=== PATIENT | female | born 1990 | race Caucasian/White ===

== ENCOUNTER → 2016-09-01 | Outpatient (CLI) | payer OTHER ==
[~2016-09-01] MED LIST: ADVIL200 M1; ALLOPURINOL300 MG PO; BACTRIM DS TAB1 EACH PO; DEXAMETHASONE4 MG PO; EMLA TOP; HYDROCODON-ACE1 EAC5 PO; HYDROXYZINE HCL25 M1 PO; IBUPROFEN800 MG PO; NO MEDICATIONS; PHENERGAN25 M1 PO; PHENERGAN25 MG PO; XARELTO15 MG PO; ZOFRAN ODT4 M1 PO
--- NOTE | ~2016-09-01 | XA230 ---
[facility] A Service of [facility] & [facility] RADIOLOGY TEXT RESULTS PATIENT: JOSE ANGEL GREGORIO [facility] [birth year] UNIT #: [id number] AGE: [address]: Jude Murray MD SEX: F ORDER DR: [id number] [place] [id number] [facility]. [place], [place] [address] [id number] O MR#: [id number] Acc #: [id number] NAME: JOSE ANGEL GREGORIO : 1990 SEX: F STUDY DATE/TIME: 09/01/2016 15:34 UNIT: [facility] ROOM: STUDY DESCRIPTION: XA FNA Attending Physician: Jude Murray M.D. Referring Physician: Jude Murray M.D. Ordering Physician: Jude Murray M.D. Primary Care Physician: Jude Murray M.D. MEDICAL IMAGING REPORT This report is preliminary unless electronic signature is present EXAM Thyroid ultrasound. HISTORY Ms. Taylor is a 26-year-old lady without underwent a CT angiogram of the chest August 02, 2016. Patient was noted to have an enlarged left supraclavicular lymph node. She subsequently underwent a thyroid ultrasound which showed multiple hypoechoic lesions within the thyroid gland. PROCEDURE There risks, benefits, and alternatives to the procedure were explained to the patient, and signed, informed consent was obtained, the patient was placed supine on the angiographic table and was prepped and draped in the usual fashion. I did perform a preliminary ultrasound through the right lobe of the thyroid gland where the patient was noted to have the 2 dominant nodules. On these images, these appear to be cysts rather than solid nodules and images were permanently saved. The patient was then prepped and draped usual sterile fashion. Time-out was performed as per protocol. Skin and subcutaneous tissues were anesthetized with buffered lidocaine. I have picked the largest cyst within the right lobe of the thyroid gland. Skin and subcutaneous tissues were anesthetized with buffered lidocaine and a 25-guage needle was advanced into the cyst under direct sterile sonographic guidance and I was able to aspirate several mL of brown material confirming that this was again a cyst. The nodule which was previously measured up to 2.1 x 1.1 x 1.0 cm on the prior study, I think is also a cyst, and this was not aspirated. Ultrasound of the left supraclavicular region again demonstrated a large node. Skin and subcutaneous tissues were anesthetized with buffered lidocaine and a total of 3 separate passes were made into this nodule under direct sterile sonographic guidance. Specimens were given to a microbiology technologist to confirm an adequate specimen had been obtained. Patient tolerated the procedure well and there are no immediate complications. [facility] A Service of [facility] RADIOLOGY TEXT RESULTS PATIENT: JOSE ANGEL GREGORIO LOCATION: [facility] #: [id number] : [birth year] UNIT #: [id number] AGE: [address]: Jude Murray MD SEX: F ORDER DR: IMPRESSION 1. My ultrasound today showed that the measured lesions within the thyroid gland correspond to cysts rather than solid nodules. I did aspirate the largest of these cysts. 2. Large left supraclavicular lymph node again seen. I did make a total of 3 separate passes through this nodule and microbiology technologist confirmed an adequate specimen had been obtained. Ultrasound was used during this procedure and permanent images were saved. Dictated by... Katy Man M.D. THIS IS AN ELECTRONICALLY VERIFIED REPORT Katy Man M.D. at 09/02/2016 5:08 PM AFF/donovan TD: 09/02/2016 13:49 JOB #: [id number] MEDICAL IMAGING REPORT COPY
== END | disposition home or self-care (01) ==
LOC: CIVR 14:06
DX: E04.1 Nontoxic single thyroid nodule (principal); R59.0 Localized enlarged lymph nodes; E66.01 Morbid (severe) obesity due to excess calories; E28.2 Polycystic ovarian syndrome
CPT/HCPCS: 76937; 76942; 88173; 88305

== ENCOUNTER → 2016-09-22 | Day surgery (SDC) | payer OTHER ==
--- NOTE | ~2016-09-22 | OR ---
Unit #: [id number] #: [id number] Patient: JOSE ANGEL GREGORIO [id number] [address] [place], [place] [address] [id number] O MR#: [id number] NAME: JOSE ANGEL GREGORIO ROOM: Date of Procedure: 09/22/2016 Admission Date: 09/22/2016 Surgeon: Haseeb Jeronimo M.D. : 1990 Attending Physician: Haseeb Jeronimo M.D. Referring Physician: Haseeb Jeronimo M.D. Primary Care Physician: Jude Murray M.D. OPERATIVE REPORT PREOPERATIVE DIAGNOSES Enlarged left cervical lymph node as well as an enlarged anterior mediastinal node. POSTOPERATIVE DIAGNOSES Enlarged left cervical lymph node as well as an enlarged anterior mediastinal node with frozen section on the left cervical node being suggestive of probable lymphoma. PROCEDURE PERFORMED Left cervical lymph node biopsy. ANESTHESIA General. ESTIMATED BLOOD LOSS About 5 mL. DRAINS None. COMPLICATIONS None. DESCRIPTION OF PROCEDURE The patient was taken to the operating room and placed on the operating room table in a supine position. After appropriate monitoring lines had been placed, general anesthesia was then induced using an LMA tube. A rolled sheet was placed beneath the shoulders such as to extend the neck and the head turned slightly to the right. The left neck and upper chest were prepped with ChloraPrep and draped in a sterile fashion. A left neck incision was made over the palpable lymph node in the neck. The incision was carried down through the subcutaneous tissue with hemostasis being obtained using the Bovie. The lateral portion of the sternocleidomastoid muscle was taken down slightly using the Bovie. The enlarged 3 cm lymph node present was then dissected free from the surrounding subcutaneous tissue with small feeding vessels into the node being clamped with hemostats and then cut. The lymph node was then removed and taken to the back table, where it was sectioned into 3 portions with one being sent to Pathology for frozen section, one being sent for permanent sections, and the final one being sent for cultures. Small branching vessels into the node that had been clamped with hemostats was then tied off using 3-0 Unit #: [id number] #: [id number] Patient: JEANNIE GREGORIOAH Vicryl ties. The lateral portion of the sternocleidomastoid muscle that had been cut was reapproximated using 2-0 Vicryl suture. The subcutaneous tissue was closed using running layers of 3-0 Vicryl. The skin was closed using running 4-0 Vicryl subcuticular stitch. Dermabond was applied to the incision. Estimated blood loss in the procedure was about 5 mL. Sponge and needle counts in the operation were correct. The patient tolerated the procedure well and left the operating room in satisfactory condition. Dictated by... Betsy Xie/freddy TD: 09/23/2016 05:09 JOB #: [id number] OPERATIVE REPORT X Haseeb Jeronimo MD X PROCEDURE OPERATIVE NOTE
[2016-09-22 08:41] LABS: URINE SOURCE CLEAN CATCH
[2016-09-22 08:44] LABS: BASOPHIL# 0.1 X10e3 (0-0.3); EOSINOPHIL# 0.2 X10e3 (0-0.7); EOSINOPHIL% 1.6 % (0.0-7.0); HEMATOCRIT 38.6 % (35.0-45.0); HEMOGLOBIN 12.9 gm/dL (12.0-16.0); LYMPHOCYTE% 29.8 % (17.0-45.0); MEAN CELL VOLUME 78.8 FL (83-96); MEAN CORPUSCULAR HEMOGLOBIN 26.3 PG (28-34); MEAN CORPUSCULAR HGB CONC 33.4 g/dL (30-36); MEAN PLATELET VOLUME 7.6 FL (6.5-11.5); MONOCYTE# 0.4 X10e3 (0-1.0); NEUTROPHIL# 6.3 X10e3 (1.5-7.1); NEUTROPHIL% 63.6 % (40-75); PLATELET COUNT 220 X10e3 (140-420); RED CELL DISTRIBUTION WIDTH 15.2 % (11.0-15.5); WHITE BLOOD COUNT 9.9 X10e3 (4.0-10.5)
[2016-09-22 08:46] LABS: DIFF IND NO
[2016-09-22 08:47] LABS: URINE APPEARANCE CLEAR; URINE BILIRUBIN NEG (NEG); URINE BLOOD NEG (NEG); URINE COLOR YELLOW; URINE GLUCOSE NEG (NEG); URINE KETONE NEG (NEG); URINE LEUKOCYTE ESTERASE NEG (NEG); URINE NITRATE NEG (NEG); URINE PROTEIN NEG (NEG); URINE SPECIFIC GRAVITY 1.026 (1.003-1.035); URINE UROBILINOGEN 0.2 MG/DL (NEG)
[2016-09-22 08:54] LABS: CULTURE INDICATED? NO
[2016-09-22 09:00] LABS: PARTIAL THROMBOPLASTIN TIME 27.5 SECONDS (23.5-31.3); PROTHROMBIN TIME (PATIENT) 10.3 SECONDS (9.6-11.5)
[2016-09-22 09:03] LABS: ALBUMIN SERUM 3.7 g/dL (3.5-5.0); ALKALINE PHOSPHATASE 71 U/L (32-92); ALT (SGPT) 34 U/L (10-40); AST (SGOT) 22 U/L (10-42); BILIRUBIN,TOTAL 0.5 mg/dL (0.2-2.0); BLOOD UREA NITROGEN 16 mg/dL (9-23); BUN/CREATININE RATIO 26.66; CALCIUM SERUM 8.6 mg/dL (8.4-10.2); CARBON DIOXIDE 25 mmol/L (22-31); CHLORIDE 104 mmol/L (100-111); CREATININE SERUM 0.6 mg/dL (0.6-1.4); GLOM FILT RATE Estimated ABOVE60 mL/min (>60); GLUCOSE FASTING 94 mg/dL (70-110); PROTEIN TOTAL SERUM 7.1 g/dL (6.0-8.3); SODIUM 138 mmol/L (135-145)
== END | disposition home or self-care (01) ==
LOC: CSUR 08:05
PROVIDERS: Surgery
DX: C85.91 Non-Hodgkin lymphoma, unspecified, lymph nodes of head, face, and neck (principal); R59.1 Generalized enlarged lymph nodes; J45.909 Unspecified asthma, uncomplicated; F17.210 Nicotine dependence, cigarettes, uncomplicated; Z88.8 Allergy status to other drugs, medicaments and biological substances; Z91.040 Latex allergy status; Z79.899 Other long term (current) drug therapy; Z90.49 Acquired absence of other specified parts of digestive tract; Z98.890 Other specified postprocedural states
CPT/HCPCS: 80053; 81003; 84703; 85025; 85610; 85730; 86850; 86900; 86901; 87070; 87205; 88305; 88331; J1100; J1885; J2250; J2270; J2765

== ENCOUNTER → 2016-11-09 | Outpatient (CLI) | payer OTHER ==
--- NOTE | ~2016-11-09 | XA91 ---
[facility] A Service of [facility] & [facility] RADIOLOGY TEXT RESULTS PATIENT: JOSE ANGEL GREGORIO LOCATION: [facility] : [birth year] UNIT #: [id number] AGE: [address]: Jr Waller MD SEX: F ORDER DR: [id number] [facility] [address] [facility]. [place], [place] [address] [id number] O MR#: [id number] Acc #: [id number] NAME: JOSE ANGEL GREGORIO : 1990 SEX: F STUDY DATE/TIME: 11/09/2016 11:16 UNIT: [facility] ROOM: STUDY DESCRIPTION: XA CVC Tunneled W Port Attending Physician: Jr Waller M.D. Ordering Physician: Jr Waller M.D. Primary Care Physician: Jude Murray M.D. MEDICAL IMAGING REPORT This report is preliminary unless electronic signature is present EXAM Port placement with ultrasound and fluoroscopic guidance. HISTORY Hodgkin's lymphoma. TECHNIQUE The procedure was explained to the patient, including risks, benefits and complications. Informed consent was obtained, and a formal time-out procedure was utilized. Full barrier sterile technique was employed via standard protocol. Conscious sedation was utilized with intravenous Versed and Fentanyl that was administered by nursing who was present and monitoring the patient during the examination. Using full barrier sterile technique and following local anesthesia with 1% Xylocaine, initial attention was directed to the right internal jugular vein, which was punctured with a micropuncture set under ultrasound guidance. Ultrasound was used to confirm vessel patency, which was confirmed, and permanent ultrasound images were recorded. A 0.018 guidewire was passed into the superior vena cava under fluoroscopic guidance. A 0.035 guidewire was passed through the micropuncture sheath, and a peel-away sheath was placed over the wire. The sheath was flushed with saline. Attention was then directed to the right infraclavicular space where a port pocket was created after local anesthesia with 1% lidocaine and 1% lidocaine with epinephrine. Blunt and sharp dissection was utilized. An 8-Estonian Bard power port was placed into the pocket and tunnel from the port pocket site to the jugular vein puncture site. The catheter was measured to 23.5 cm, cut and deployed through the peel-away sheath with the tip positioned at the cavoatrial junction. The port pocket was flushed with saline and the port was flushed with Hep-Lock solution. The [facility] A Service of [facility] RADIOLOGY TEXT RESULTS PATIENT: JOSE ANGEL GREGORIO [facility] : [birth year] UNIT #: [id number] AGE: [address]: Jr Waller MD SEX: F ORDER DR: port pocket was closed with an interrupted subcutaneous layer of 3-0 Vicryl suture, followed by running 4-0 subcuticular stitch with Monocryl. Dermabond glue was applied to the port pocket site and the jugular vein puncture site. Total fluoroscopy time 0.1 minutes with a total dose of 3 mGy. The patient tolerated the procedure well. IMPRESSION Successful port placement with ultrasound and fluoroscopic guidance utilizing conscious sedation. Dictated by... Cristofer Rider M.D. THIS IS AN ELECTRONICALLY VERIFIED REPORT Cristofer Rider M.D. at 11/10/2016 10:23 PM GEN/jeanne TD: 11/09/2016 18:23 JOB #: [id number] MEDICAL IMAGING REPORT Page 1 of 1 COPY
[2016-11-09 10:55] LABS: HEMATOCRIT 39.3 % (35.0-45.0); MEAN CELL VOLUME 79.4 FL (83-96); MEAN CORPUSCULAR HEMOGLOBIN 26.4 PG (28-34); MEAN CORPUSCULAR HGB CONC 33.2 g/dL (30-36); MEAN PLATELET VOLUME 6.8 FL (6.5-11.5); RED BLOOD COUNT 4.95 X10e (3.90-5.30); RED CELL DISTRIBUTION WIDTH 14.9 % (11.0-15.5); WHITE BLOOD COUNT 9.1 X10e3 (4.0-10.5)
[2016-11-09 11:09] LABS: PARTIAL THROMBOPLASTIN TIME 26.6 SECONDS (23.5-31.3); PROTHROMBIN TIME (PATIENT) 10.4 SECONDS (9.6-11.5)
== END | disposition home or self-care (01) ==
LOC: CIVR 09:47
PROVIDERS: Internal Medicine Hematology & Oncology
PROC: 02HV33Z Insertion of Infusion Device into Superior Vena Cava, Percutaneous Approach (ICD-10-PCS; principal; 2016-11-09)
DX: Z45.2 Encounter for adjustment and management of vascular access device (principal); R59.0 Localized enlarged lymph nodes; E04.2 Nontoxic multinodular goiter; C81.11 Nodular sclerosis Hodgkin lymphoma, lymph nodes of head, face, and neck; E28.2 Polycystic ovarian syndrome; Z79.899 Other long term (current) drug therapy; Z87.891 Personal history of nicotine dependence; Z90.49 Acquired absence of other specified parts of digestive tract; Z91.040 Latex allergy status; Z88.8 Allergy status to other drugs, medicaments and biological substances
CPT/HCPCS: 36415; 76937; 77001; 85027; 85610; 85730; C1788; C1894; J0690; J1642; J2250; J3010

== ENCOUNTER → 2016-11-10 | Outpatient (CLI) | payer OTHER ==
--- NOTE | ~2016-11-10 | XA231 ---
[facility] A Service of [facility] & [facility] RADIOLOGY TEXT RESULTS PATIENT: JOSE ANGEL GREGORIO LOCATION: [facility] : 90 UNIT #: [id number] AGE: [address]: Ronan Pate MD SEX: F ORDER DR: [id number] [place] [id number] [facility]. [place], [place] [address] [id number] O MR#: [id number] Acc #: [id number] NAME: JOSE ANGEL GREGORIO : 1990 SEX: F STUDY DATE/TIME: 11/10/2016 15:52 UNIT: [facility] ROOM: STUDY DESCRIPTION: XA Consult Attending Physician: Ronan Pate M.D. Referring Physician: Ronan Pate M.D. Ordering Physician: Donald Vela M.D. Primary Care Physician: Jude Murray M.D. MEDICAL IMAGING REPORT This report is preliminary unless electronic signature is present PROCEDURE Port incision check. INDICATIONS 26-year-old female who had a chest port placed yesterday. She called and stated that the glue came off of the small incision at the base of the right neck. We had her come in to evaluate the incision. FINDINGS The incision was evaluated. The incision was cleaned was apposed. The glue had fallen off. There is no evidence of any discharge or erythema or swelling. I placed a small Steri-Strip on the incision and the patient was discharged with instructions to follow up for routine 10-day port check, or call with any other concerns prior to that time. Dictated by... Ronan Pate M.D. THIS IS AN ELECTRONICALLY VERIFIED REPORT Ronan Pate M.D. at 11/11/2016 9:32 AM JORGE/ratna TD: 11/10/2016 17:31 JOB #: [id number] MEDICAL IMAGING REPORT Page 1 of 1 COPY
== END | disposition home or self-care (01) ==
LOC: CIVR 15:32
DX: Z45.2 Encounter for adjustment and management of vascular access device (principal)
CPT/HCPCS: 76140

== ENCOUNTER → 2016-12-16 | Outpatient (CLI) | payer OTHER | END | disposition home or self-care (01) | LOC: CECH 09:37 | DX: C81.11 Nodular sclerosis Hodgkin lymphoma, lymph nodes of head, face, and neck (principal); R59.9 Enlarged lymph nodes, unspecified; E04.2 Nontoxic multinodular goiter; E28.2 Polycystic ovarian syndrome | CPT/HCPCS: 93306 ==

== ENCOUNTER 2017-01-01 01:52 | Inpatient (IN) | payer OTHER, BC ==
--- NOTE | ~2017-01-01 | US84 ---
[id number] [facility] [address] [facility]. [place], [place] [address] [id number] I MR#: [id number] Acc #: [id number] NAME: JOSE ANGEL GREGORIO : 1990 SEX: F STUDY DATE/TIME: 01/02/2017 14:53 UNIT: C3A PCU ROOM: 318 STUDY DESCRIPTION: US LE Veins Complete [place] Stdy Attending Physician: Indy Mulligan M.D. Referring Physician: Douglas Armstrong M.D. Ordering Physician: Ed Doc Betsy Michaud Primary Care Physician: Jude Murray M.D. MEDICAL IMAGING REPORT This report is preliminary unless electronic signature is present EXAM Bilateral lower extremity venous duplex, 01/02/2017 HISTORY Bilateral lower extremity pain and edema for 2 days, evaluate for deep vein thrombosis. History of pulmonary embolus diagnosed on chest CT 01/01/2017. TECHNIQUE Venous ultrasound examination of both lower extremities was performed using grayscale, spectral Doppler and color flow Doppler imaging. FINDINGS The examination is negative. There is no evidence of deep venous thrombus from the groin to the lower calf bilaterally. Visualized greater saphenous veins are also patent. IMPRESSION Negative examination. No evidence of lower extremity deep venous thrombosis. Dictated by... Rodger Lopez M.D. THIS IS AN ELECTRONICALLY VERIFIED REPORT Rodger Lopez M.D. at 01/03/2017 8:13 AM FLORIAN/ryan TD: 01/02/2017 20:36 JOB #: [id number] MEDICAL IMAGING REPORT Page 1 of 1 COPY
--- NOTE | ~2017-01-01 | DS ---
Unit #: [id number] #: [id number] Patient: JOSE ANGEL GREGORIO [id number] [address] [place], [place] [address] [id number] I MR#: [id number] NAME: JOSE ANGEL GREGORIO ROOM: [facility] Age: 26 Sex: F Admission Date: 01/01/2017 : 1990 Discharge Date: 01/03/2017 Attending Physician: Indy Mulligan M.D. Referring Physician: Douglas Armstrong M.D. Primary Care Physician: Jude Murray M.D. DISCHARGE SUMMARY REASON FOR ADMISSION Acute pulmonary embolism. HISTORY OF PRESENT ILLNESS/HOSPITAL COURSE The patient is a very pleasant 26-year-old female, who presented secondary to acute hypoxic respiratory failure. She underwent a CTA chest in the emergency room which did reveal positive acute pulmonary embolism. Subsequently, consultation was placed to Dr. Waller as she had seen him in the past secondary to her recent diagnosis of lymphoma. The patient was placed on a heparin drip while here on the telemetry floor. Recommendation was made for the patient to be discharged home on Xarelto. Appropriate prescription was given as detailed below. DIAGNOSTIC STUDIES LABORATORY: Laboratory studies are currently pending, especially in regards to her possible history of factor V. Patient will be followed up as an outpatient by Dr. Waller for ongoing management of lymphoma, multinodular goiter, as well as, acute pulmonary embolism. Patient will follow up with Dr. Anjana Liao of [facility] for ongoing care. FINAL DISCHARGE DIAGNOSES 1. Acute pulmonary embolism. 2. Acute hypoxic respiratory failure. 3. Multinodular goiter. 4. Possible factor V Leiden deficiency. 5. Severe morbid obesity. 6. Polycystic ovary syndrome. DISCHARGE MEDICATIONS 1. Zofran 4 mg p.o. q.6 p.r.n. 2. Dexamethasone 8 mg p.o. b.i.d. take as directed. 3. Phenergan 25 mg p.o. q.4 p.r.n. 4. Emla cream 5 g topical. 5. Atarax 25 mg p.o. t.i.d. p.r.n. 6. Allopurinol 300 mg p.o. daily. 7. Xarelto starter pack 15 mg p.o. b.i.d. x21 days, then 20 mg p.o. daily afterwards. 8. [place] 10/325 one tablet p.o. q.4 p.r.n. #30, prescription given. Please note that patient was evaluated for oxygen and it was noted she was acutely hypoxic secondary to pulmonary embolism and therefore she will be Unit #: [id number] #: [id number] Patient: JOSE ANGEL GREGORIO discharged home with oxygen once this is set up and patient is seen later this morning by Dr. Waller. Patient appears clinically stable for discharge home. Dictated by... Betsy Christensen/dimitrios TD: 01/04/2017 09:00 JOB #: [id number] DISCHARGE SUMMARY Page 1 of 1 X Indy Mulligan MD X DISCHARGE SUMMARY
--- NOTE | ~2017-01-01 | CR72 ---
[facility] A Service of [facility] RADIOLOGY TEXT RESULTS PATIENT: JOSE ANGEL GREGORIO LOCATION: [facility] 318-01 : [birth year] UNIT #: [id number] AGE: [address]: Indy Mulligan MD SEX: F ORDER DR: [id number] [facility] [address] [facility] [address] [facility] [place], [place] [address] [id number] I MR#: [id number] Acc #: [id number] NAME: JOSE ANGEL GREGORIO : 1990 SEX: F STUDY DATE/TIME: 01/01/2017 UNIT: [address] ROOM: [facility] STUDY DESCRIPTION: CR Chest Single View Portable Attending Physician: Indy Mulligan M.D. Referring Physician: Douglas Armstrong M.D. Ordering Physician: Connor Gipson M.D. Primary Care Physician: Jude Murray M.D. MEDICAL IMAGING REPORT This report is preliminary unless electronic signature is present EXAM Chest portable 01/01 02:59 INDICATIONS Left side chest pain today. History of lymphoma. FINDINGS A single AP portable view of the chest shows both lungs to be clear. The heart is normal in size. The mediastinal contour is normal. No significant bone abnormalities are seen. IMPRESSION Normal portable chest. Dictated by... Cristofer Venegas Jr., M.D. THIS IS AN ELECTRONICALLY VERIFIED REPORT Cristofer Venegas Jr., M.D. at 01/01/2017 9:24 PM JASEN/camille TD: 01/01/2017 10:56 JOB #: [id number] MEDICAL IMAGING REPORT Page 1 of 1 COPY
--- NOTE | ~2017-01-01 | EKG ---
PATIENT: JOSE ANGEL GREGORIO UNIT #: [id number] Ventricular Rate: 89 BPM Atrial Rate: 89 BPM P-R Interval: 146 ms QRS Duration: 94 ms Q-T Interval: 394 ms QTC Calculation(Bezet): 479 ms P [place]: 55 degrees Calculated R [place]: 71 degrees Calculated T [place]: 53 degrees Diagnosis Line: Normal sinus rhythm with sinus arrhythmia Diagnosis Line: Normal ECG Diagnosis Line: When compared with ECG of 02-AUG-2016 21:15, Diagnosis Line: No significant change was found Diagnosis Line: Confirmed by ROSA RODRIGUEZ MD ([id number]) on Diagnosis Line: 01/01/2017 11:10:37 AM INTERPRETING MDEmily NUNN
--- NOTE | ~2017-01-01 | US140 ---
[facility] A Service of [facility] & [facility] RADIOLOGY TEXT RESULTS PATIENT: JOSE ANGEL GREGORIO LOCATION: [facility] 318-01 : [birth year] UNIT #: [id number] AGE: [address]: Indy Mulligan MD SEX: F ORDER DR: [id number] [facility] [address] [place], [place] [address] [id number] I MR#: [id number] Acc #: [id number] NAME: JOSE ANGEL GREGORIO : 1990 SEX: F STUDY DATE/TIME: 01/02/2017 14:40 UNIT: [address] ROOM: [facility] STUDY DESCRIPTION: US UE Veins Unilat or Ltd Stdy Attending Physician: Indy Mulligan M.D. Referring Physician: Douglas Armstrong M.D. Ordering Physician: Ed Leopoldo Michaud M.D. Primary Care Physician: Jude Murray M.D. MEDICAL IMAGING REPORT This report is preliminary unless electronic signature is present EXAM Right upper extremity venous duplex, 01/02/2017 HISTORY Right upper extremity pain for 1 day. Pulmonary embolus diagnosed with chest CT 01/01/2017, evaluate for deep vein thrombosis. FINDINGS Davila-scale images of the right upper extremity were obtained as well as Doppler waveform spectral analysis and color flow Doppler imaging. There is normal blood flow and compressibility in the right internal jugular vein as well as the right subclavian, axillary, brachial, cephalic and basilic veins. There is no evidence of deep vein thrombosis in the right upper extremity. IMPRESSION Negative right upper extremity venous duplex with no evidence of deep vein thrombosis. Dictated by... Rodger Lopez M.D. THIS IS AN ELECTRONICALLY VERIFIED REPORT Rodger Lopez M.D. at 01/03/2017 8:13 AM FLORIAN/ryan TD: 01/02/2017 21:28 JOB #: [id number] MEDICAL IMAGING REPORT Page 1 of 1 COPY
--- NOTE | ~2017-01-01 | HP ---
Unit #: [id number] #: [id number] Patient: JOSE ANGEL GREGORIO [id number] [address] [place], [place] [address] [id number] I MR#: [id number] NAME: JOSE ANGEL GREGORIO ROOM: [facility] Age: 26 Sex: F Admission Date: 01/01/2017 : 1990 Attending Physician: Indy Mulligan M.D. Referring Physician: Douglas Armstrong M.D. Primary Care Physician: Jude Murray M.D. HISTORY AND PHYSICAL REASON FOR ADMISSION Acute pulmonary embolism. HISTORY OF PRESENT ILLNESS The patient is a 26-year-old female who was diagnosed with lymphoma, currently followed by Dr. Waller for the past several weeks, who presented secondary to acute onset of shortness of breath, right sided chest discomfort. She presented to the ER with similar symptoms. It was noted that she was acutely hypoxic. She underwent CT angiogram PE protocol while being evaluated in the emergency room which demonstrated possibility of infiltrate in the right lower lobe, possible atelectasis but also showed right lower lobe pulmonary artery branch pulmonary embolism and, thus, she was admitted for the same. Overnight, she received Lovenox at 1 mg/kg subcu b.i.d. and, at the present time, I am evaluating her on a telemetry floor and she is otherwise comfortable. She tells me that approximately six months ago she was diagnosed with a left lower extremity superficial vein thrombosis and was told by her physician at that time to take Motrin and no further anticoagulation was recommended. She also tells me that she has no prior history of any blood clots. However, her father did have a blood clotting disorder and she believes that she has been diagnosed with Factor V Leiden deficiency. However, details are not clear. PAST MEDICAL HISTORY 1. Lymphoma, currently under treatment by Dr. Waller. 2. PCOS. 3. Generalized anxiety disorder. 4. Prior history of SVT left lower extremity. SURGICAL HISTORY 1. Cholecystectomy. 2. Biopsy of neck with resultant diagnosis of lymphoma. 3. Prior history of bilateral ear tube placement. HOME MEDICATIONS 1. Advil. 2. Atarax. ALLERGIES Unit #: [id number] #: [id number] Patient: JOSE ANGEL GREGORIO. FAMILY HISTORY Positive for blood clotting disorder in father. SOCIAL HISTORY The patient denies any tobacco use. Very social alcohol use and that too very seldom once every three months. Patient adamantly denies IV drug use. REVIEW OF SYSTEMS Please see HPI. Twelve point otherwise negative except for those positives noted in HPI. PHYSICAL EXAMINATION VITAL SIGNS: Temperature 98.4, pulse 117, respiratory rate 22, blood pressure 163/99. GENERAL APPEARANCE: The patient is a very pleasant 26-year-old female lying comfortably in no acute distress. A bit anxious on exam. HEAD EXAM: Atraumatic, normocephalic. EAR EXAM: Tympanic membranes do not reveal any erythema or injection. NECK EXAM: Supple. CVS: S1, S2 are audible. I do not hear a murmur. CHEST: Chest wall exam does reveal a port which is placed over her right anterior chest. LUNG EXAM: Generally clear to auscultation bilaterally. EXTREMITIES: Lower extremity exam - 1+ lower extremity edema. No calf tenderness noted bilaterally. NEUROLOGICAL EXAM: The patient is A and O x3. No evidence of any focal nerve deficits. INITIAL ER COURSE Reveals the aforementioned CTA of chest. BNP is 14. BMP is relatively unremarkable. Her initial CBC shows a hemoglobin of 10.7 with MCV of 79. INITIAL ADMISSION DIAGNOSES 1. Acute pulmonary embolism. 2. Possible community-acquired pneumonia. 3. Acute hypoxic respiratory failure. 4. Lymphoma, currently under treatment by Dr. Waller. 5. Questionable Factor V Leiden deficiency. 6. Morbid obesity. 7. Prior history of polycystic ovarian syndrome. 8. Generalized anxiety disorder. PLAN Admission to telemetry floor, symptom management, O2 support, pain control. Consultation will be placed to Dr. Waller in regards to anticoagulation management as currently she is undergoing treatment for lymphoma and certainly consideration may be given, since this is the first time event, to new novel anticoagulation. However, I will defer the decision to Novolin anticoagulation versus Lovenox and/or Coumadin to Dr. Waller. Also noted is the patient has been receiving Lupron injections on a monthly basis. This may need to be reviewed as an outpatient given that she has a new pulmonary embolism. Will also check a lower extremity bilateral ultrasound to rule out acute DVT. Plans have been reviewed with patient. She had all of her questions answered. She is well aware of the plan as stated above, and she is full Unit #: [id number] #: [id number] Patient: JOSE ANGEL GREGORIO. Dictated by Betsy Christensen/brock TD: 01/02/2017 05:02 JOB #: [id number] HISTORY AND PHYSICAL Page 1 of 1 X Indy Mulligan MD X HISTORY AND PHYSICAL
--- NOTE | ~2017-01-01 | CO ---
Unit #: [id number] #: [id number] Patient: JOSE ANEGL GREGORIO [id number] [address] [place], [place] [address] [id number] I MR#: [id number] NAME: JOSE ANGEL GREGORIO ROOM: [facility] Age: 26 Sex: F Admission Date: 01/01/2017 : 1990 Attending Physician: Indy Mulligan M.D. Primary Care Physician: Jude Murray M.D. CONSULTATION REPORT CHIEF COMPLAINT Classical Hodgkin lymphoma, nodular sclerosis type, received three cycles of ABVD, now has a PE. HISTORY OF PRESENT ILLNESS This is a 26-year-old female who had a cholecystectomy during July 2015 in [place]. At that time, she had mediastinal cervical lymphadenopathy, somehow it was ignored. The patient had a superficial vein thrombosis and had extensive imaging study. Patient was found to have a left cervical lymphadenopathy, mediastinal and paratracheal lymphadenopathy. The patient had excisional biopsy and it confirmed classical Hodgkin lymphoma, nodular sclerosis type. PET scan on 09/13/2016 confirmed the hypermetabolic activity in the left supraclavicular region, anterior mediastinum and right paratracheal. She had received three cycles of ABVD. She is tolerating. Yesterday she called me and had pleuritic chest pain. I sent her to ER. Her CT of the chest PE protocol on 01/01/2017 confirmed the right sided PE. The mediastinal lymph node is improving. The patient is taking Lovenox 160 mg subcu b.i.d. At present, she still has pleuritic chest pain. REVIEW OF SYSTEMS CONSTITUTIONAL: No fever, no chills, no sweats, no weight loss. EYES: No visual symptoms. EARS, NOSE AND THROAT: There is no runny nose or sore throat or difficulty hearing. CARDIOVASCULAR: No chest pain. No shortness of breath. No palpitations. No orthopnea. No PND. RESPIRATORY: As mentioned above. GASTROINTESTINAL: No nausea, vomiting, diarrhea, constipation, hematochezia or melena. GENITOURINARY: No urinary frequency, hesitancy or urgency. No blood in the urine. MUSCULOSKELETAL: No muscle or joint pain. NEUROLOGIC: No headache. No numbness or tingling. No weakness. No seizure. PSYCHIATRIC: No anxiety, depression or mood disturbance. ENDOCRINE: No excessive urination or thirst. DERMATOLOGIC: No rash or change in the skin. Unit #: [id number] #: [id number] Patient: JOSE ANGEL GREGORIO ALLERGIC/IMMUNOLOGIC: No symptoms. HEMATOLOGIC/LYMPHATIC: Denies any symptoms. PAST MEDICAL HISTORY 1. Classical Hodgkin lymphoma, nodular sclerosis type. 2. PE. 3. Obesity. ALLERGIES None. SOCIAL HISTORY Used to smoke a few cigarettes a day for a few years. Quit many years ago. Denied any alcohol abuse. SURGICAL HISTORY Cholecystectomy. FAMILY HISTORY Negative for cancer. PHYSICAL EXAMINATION GENERAL: Patient is comfortable. ECOG is 0. The patient is pleasant. VITAL SIGNS: Afebrile. Pulse 74, respirations 16, O2 sat 97.5, blood pressure 130/78. HEENT: Moist mucosa. Pupils equally reactive to light. Extraocular muscles intact. Sclerae anicteric. No obvious bleeding from nasal mucosa or oral mucosa. Scalp normal. Hearing normal. NECK: No JVD. No lymphadenopathy. LYMPHATIC/HEMATOLOGIC: There is no palpable adenopathy in the neck, axilla or inguinal area. CARDIOVASCULAR: S1, S2. Regular rate and rhythm. No S3 or S4. RESPIRATORY: Chest symmetrical, normal. Clear to auscultation bilaterally. No wheezes, no rales, no rhonchi. No dullness to percussion. ABDOMEN/GASTROINTESTINAL: Abdomen is soft, nontender, nondistended. No hepatosplenomegaly. EXTREMITIES: There is no clubbing, no cyanosis, no edema. No varicose veins. NEUROLOGICAL: Patient is alert, awake and oriented x3. Cranial nerves II-XII are intact. Sensory grossly intact. Motor is 4/5 in all four extremities. Gait is normal. Station is normal. Language is normal. Memory is normal. DTRs +2 in all four extremities. MUSCULOSKELETAL: No joint swelling. No bony tenderness. No muscle tenderness. SKIN: No petechiae, no rash, no ecchymosis. PSYCHIATRIC: No anxiety. No delusions or hallucinations. There is no agitation. Eye contact is normal. Affect is appropriate. There is no flight of ideas. DIAGNOSTIC STUDIES LABORATORY: WBC 5.7, hemoglobin 10.7, MCV 79, platelets 211. Creatinine is 0.6, LFTs are normal. IMAGING: CT chest PE protocol as mentioned above. ASSESSMENT AND PLAN 26-year-old female with the following active issues: 1. Classical Hodgkin lymphoma: It is nodular sclerosis type. The Unit #: [id number] #: [id number] Patient: JOSE ANGEL GREGORIO patient has received three cycles of ABVD. The fourth cycle is due tomorrow. My partner, Dr. Waller, will decide in this regard. 2. Pulmonary embolism: The patient has a right sided PE. She is on Lovenox. I will discontinue Lovenox. I will start patient on heparin. This is because of her weight. She weighs about 374 pounds, 169 kg. Heparin will be the best option. 3. Anemia: Will check iron studies. Dictated by..Betsy Portillo/brock TD: 01/02/2017 05:46 JOB #: [id number] CONSULTATION REPORT Page 1 of 1 X Ihsan Castellanos MD CONSULTATION REPORT
--- NOTE | ~2017-01-01 | CT16 ---
[facility] A Service of [facility] & [facility] RADIOLOGY TEXT RESULTS PATIENT: JOSE ANGEL GRGEORIO LOCATION: [facility] [id number] : [birth year] UNIT #: [id number] AGE: [address]: Indy Mulligan MD SEX: F ORDER DR: [id number] [facility] [address] [place], [place] [address] [id number] E MR#: [id number] Acc #: [id number] NAME: JOSE ANGEL GREGORIO : 1990 SEX: F STUDY DATE/TIME: 01/01/2017 03:46 UNIT: [facility] ROOM: STUDY DESCRIPTION: CT Angio Chest for PE Attending Physician: Connor Gipson M.D. Ordering Physician: Connor Gipson M.D. Primary Care Physician: Jude Murray M.D. MEDICAL IMAGING REPORT This report is preliminary unless electronic signature is present EXAM Chest CTA 01/01/2017 at 03:46 INDICATIONS Right upper back pain and shortness of air with cough for 1 week getting worse. History of lymphoma. Patient currently undergoing chemotherapy. TECHNIQUE Axial images were obtained through the chest following IV contrast administration. 3-D reformats were obtained. Comparison made with 08/02/2016. This CT exam was performed with one or more of the following radiation dose reduction techniques: automatic control, adjustment of mA and/or kV according to patient size, and iterative reconstruction. FINDINGS Exam is degraded by streak artifact secondary to patient obesity. However, pulmonary embolism is demonstrated in the right lower lobe pulmonary arterial branch. The remainder of the pulmonary circulation is clear. No aortic dissection. No pleural or pericardial effusion. Anterior mediastinal lymph node today measures 9 mm where it was previously about 11 mm. Previously seen left supraclavicular node is not well visualized. It is probably smaller. There is some infiltrate in the right lower lobe which may reflect atelectasis or pneumonia. Pulmonary infarct is in the differential diagnosis. Upper abdomen shows cholecystectomy. IMPRESSION 1. Exam is limited due to artifact from patient obesity. However, there is pulmonary embolism in a right lower lobe pulmonary arterial branch. 2. There is some mild infiltrates or atelectasis in the right lower lobe. Infarct is in the differential diagnosis but is considered somewhat less likely. [facility] A Service of [facility] RADIOLOGY TEXT RESULTS PATIENT: JOSE ANGEL GREGORIO LOCATION: [facility] [id number] : [birth year] UNIT #: [id number] AGE: [address]: Indy Mulligan MD SEX: F ORDER DR: 3. Slight improvement in mediastinal adenopathy. ADDENDUM Findings have been discussed directly with Dr. Gipson in the emergency room at the time of this dictation. STAT * RESULT Dictated by... Cristofer Venegas Jr., M.D. THIS IS AN ELECTRONICALLY VERIFIED REPORT Cristofer Venegas Jr., M.D. at 01/01/2017 6:07 AM JASEN/shelli TD: 01/01/2017 04:37 JOB #: [id number] MEDICAL IMAGING REPORT Page 1 of 1 COPY
--- NOTE | ~2017-01-01 | BMI ---
[facility] Nutrition Therapy DATE: 01/02/17 Patient: JOSE ANGEL VALVERDE TOYANA Physician: TALON Address: [address] [place] [address] Room/Bed: [address] [place] [address], Zip: [place] [address] Admit Date: 01/01/17 Date of : [birth year] Height: 5 5 Weight: 373 169.2 HIGH BMI NOTE: DX: 26 y/o female admitted for acute pulmonary embolism ANTHROPOMETRICS: ht: 5'5" wt: 373# (169 kg) BMI 62 DIET: Healthy Heart INTERVENTION: 1. Healthy Heart diet RECOMMENDATIONS: 1. Continue current healthy heart diet in order to promote gradual weight loss towards a healthy BMI (19.0-25.0) or +/-10% IBW. RD will f/u per protocol. Respectfully, YENIFER MACKEY, merchandising internship [employer] [facility] cc: client file
[~2017-01-01 01:52] MED LIST changes: -ALLOPURINOL300 MG PO; -BACTRIM DS TAB1 EACH PO; -DEXAMETHASONE4 MG PO; -EMLA TOP; -HYDROCODON-ACE1 EAC5 PO; -PHENERGAN25 M1 PO; -PHENERGAN25 MG PO; -XARELTO15 MG PO; -ZOFRAN ODT4 M1 PO
[2017-01-01 02:40] LABS: ARTERIAL BLD GAS O2 SATURATION 97.5 % (90.0-100.0); ARTERIAL BLOOD GAS ALLEN TEST NORMAL; ARTERIAL BLOOD GAS ART SITE RIGHT RADIAL; ARTERIAL BLOOD GAS CARBOXY HB 1.9 %sat (0.0-9.0); ARTERIAL BLOOD GAS DELIVERY ROOM AIR; ARTERIAL BLOOD GAS HCO3 26.2 mmol/L; ARTERIAL BLOOD GAS MET HB 0.6 %sat (0.0-2.0); ARTERIAL BLOOD GAS PCO2 39.1 mmHg (35.0-45.0); ARTERIAL BLOOD GAS PO2 84.6 mmHg (80.0-100); ARTERIAL BLOOD GAS pH 7.434 (7.350-7.450); ARTERIAL DRAW? YES
[2017-01-01 03:09] LABS: BASOPHIL% 0.8 % (0-2.5); EOSINOPHIL# 0.1 X10e3 (0-0.7); EOSINOPHIL% 1.7 % (0.0-7.0); HEMOGLOBIN 10.7 gm/dL (12.0-16.0); LYMPHOCYTE# 1.7 X10e3 (1.0-3.5); LYMPHOCYTE% 30.2 % (17.0-45.0); MEAN CELL VOLUME 79.3 FL (83-96); MEAN CORPUSCULAR HEMOGLOBIN 25.8 PG (28-34); MEAN CORPUSCULAR HGB CONC 32.5 g/dL (30-36); MEAN PLATELET VOLUME 7.3 FL (6.5-11.5); MONOCYTE# 0.6 X10e3 (0-1.0); MONOCYTE% 10.4 % (3.0-12.0); NEUTROPHIL# 3.2 X10e3 (1.5-7.1); NEUTROPHIL% 56.9 % (40-75); PLATELET COUNT 211 X10e3 (140-420); RED BLOOD COUNT 4.16 X10e (3.90-5.30); RED CELL DISTRIBUTION WIDTH 14.9 % (11.0-15.5); WHITE BLOOD COUNT 5.7 X10e3 (4.0-10.5)
[2017-01-01 03:10] LABS: DIFF IND NO
[2017-01-01 03:20] LABS: POC - CKMB <1.0 ng/mL (0.0-7.9); POC - TROPONIN <0.05 ng/mL (<=0.05)
[2017-01-01 03:23] LABS: PARTIAL THROMBOPLASTIN TIME 28.7 SECONDS (23.5-31.3); PROTHROMBIN TIME (PATIENT) 10.7 SECONDS (10.0-11.7)
[2017-01-01 03:32] LABS: ALBUMIN SERUM 3.3 g/dL (3.5-5.0); BILIRUBIN, DIRECT 0.1 mg/dL (0.0-0.2); BILIRUBIN,INDIRECT 0.2 mg/dL (0.0-0.9); BILIRUBIN,TOTAL 0.3 mg/dL (0.2-2.0); BUN/CREATININE RATIO 28.33; CALCIUM SERUM 8.2 mg/dL (8.4-10.2); CREATININE SERUM 0.6 mg/dL (0.6-1.4); GLOM FILT RATE Estimated 125.8 mL/min (>60); POTASSIUM 3.6 mmol/L (3.5-5.1); PROTEIN TOTAL SERUM 6.3 g/dL (6.0-8.3)
[2017-01-01] MEDS ORDERED: ALLOPURINOL300 MG PO (05:24)
[2017-01-01] MEDS ORDERED: PHENERGAN25 M1 PO (05:26)
[2017-01-01] MEDS ORDERED: PHENERGAN25 MG PO (07:57)
[2017-01-01] MEDS ORDERED: BACTRIM DS TAB1 EACH PO (07:57)
[2017-01-01] MEDS ORDERED: ZOFRAN ODT4 M1 PO (15:29)
[2017-01-01] MEDS ORDERED: DEXAMETHASONE4 MG PO (15:30)
[2017-01-01] MEDS ORDERED: EMLA TOP (15:31)
[2017-01-01] MEDS ORDERED: HYDROXYZINE HCL25 M1 PO (15:32)
[2017-01-02 02:48] LABS: HEMATOCRIT 33.6 % (35.0-45.0); MEAN CELL VOLUME 79.4 FL (83-96); MEAN CORPUSCULAR HEMOGLOBIN 25.9 PG (28-34); MEAN CORPUSCULAR HGB CONC 32.7 g/dL (30-36); MEAN PLATELET VOLUME 7.5 FL (6.5-11.5); RED BLOOD COUNT 4.23 X10e (3.90-5.30); RED CELL DISTRIBUTION WIDTH 15.2 % (11.0-15.5); WHITE BLOOD COUNT 5.6 X10e3 (4.0-10.5)
[2017-01-02 03:27] LABS: ALBUMIN SERUM 3.1 g/dL (3.5-5.0); BILIRUBIN,TOTAL 1.1 mg/dL (0.2-2.0); CALCIUM SERUM 8.4 mg/dL (8.4-10.2); CREATININE SERUM 0.5 mg/dL (0.6-1.4); GLOM FILT RATE Estimated 133.6 mL/min (>60); POTASSIUM 4.2 mmol/L (3.5-5.1); PROTEIN TOTAL SERUM 6.1 g/dL (6.0-8.3)
[2017-01-02 03:39] LABS: FERRITIN 152 ng/mL (11-307)
[2017-01-03 02:49] LABS: HEMATOCRIT 32.4 % (35.0-45.0); HEMOGLOBIN 10.8 gm/dL (12.0-16.0); MEAN CELL VOLUME 78.8 FL (83-96); MEAN CORPUSCULAR HEMOGLOBIN 26.2 PG (28-34); MEAN CORPUSCULAR HGB CONC 33.2 g/dL (30-36); MEAN PLATELET VOLUME 7.2 FL (6.5-11.5); RED BLOOD COUNT 4.11 X10e (3.90-5.30); RED CELL DISTRIBUTION WIDTH 15.1 % (11.0-15.5); WHITE BLOOD COUNT 5.6 X10e3 (4.0-10.5)
[2017-01-03 03:18] LABS: CALCIUM SERUM 8.7 mg/dL (8.4-10.2); CREATININE SERUM 0.5 mg/dL (0.6-1.4); GLOM FILT RATE Estimated 133.6 mL/min (>60); POTASSIUM 4.2 mmol/L (3.5-5.1)
[2017-01-03] MEDS ORDERED: HYDROCODON-ACE1 EAC5 PO (09:28)
[2017-01-03] MEDS ORDERED: XARELTO15 MG PO (09:30)
== END 2017-01-03 11:02 | disposition home or self-care (01) | DRG 175 ==
LOC: CED 01:52 → CEDOF 04:30 → C3A PCU 04:30 → CEDOF 05:04 → C3A PCU 05:04 → CED 05:04 → CEDOF 06:04 → C3A PCU 06:46 → CEDOF 06:46 → C3A PCU 01-03 11:02
PROVIDERS: Emergency Medicine; Family Medicine; Internal Medicine; Internal Medicine Hematology
PROC: B32TYZZ Computerized Tomography (CT Scan) of Left Pulmonary Artery using Other Contrast (ICD-10-PCS; principal; 2017-01-01)
PROC: B32SYZZ Computerized Tomography (CT Scan) of Right Pulmonary Artery using Other Contrast (ICD-10-PCS; 2017-01-01)
DX: I26.99 Other pulmonary embolism without acute cor pulmonale (principal); J96.01 Acute respiratory failure with hypoxia; Z68.43 Body mass index [BMI] 50.0-59.9, adult; C85.90 Non-Hodgkin lymphoma, unspecified, unspecified site; E66.01 Morbid (severe) obesity due to excess calories; D68.51 Activated protein C resistance; F41.1 Generalized anxiety disorder; Z90.49 Acquired absence of other specified parts of digestive tract; Z91.040 Latex allergy status; E28.2 Polycystic ovarian syndrome; D64.9 Anemia, unspecified; E04.2 Nontoxic multinodular goiter; Z87.891 Personal history of nicotine dependence
CPT/HCPCS: 36415; 36600; 71010; 71275; 80048; 80053; 80076; 81240; 81241; 82553; 82607; 82728; 82803; 83540; 83550; 83880; 84484; 85025; 85027; 85610; 85730; 87040; 93005; 93970; 93971; 94760; 96374; 99291; J1170; J1642; J1644; J1650; J2060; J2270; J2405; J3010; Q9967

== ENCOUNTER 2017-01-21 00:46 | Emergency (ER) | payer BC, OTHER ==
--- NOTE | ~2017-01-21 | CT2 ---
[facility] A Service of [facility] & [facility] RADIOLOGY TEXT RESULTS PATIENT: JOSE ANGEL GREGORIO LOCATION: [facility] : [birth year] UNIT #: [id number] AGE: [address]: Yesenia Vasquez MD SEX: F ORDER DR: [id number] [facility] [address] [place], [place] [address] [id number] E MR#: [id number] Acc #: [id number] NAME: JOSE ANGEL GREGORIO : 1990 SEX: F STUDY DATE/TIME: 01/21/2017 3:01 UNIT: [facility] ROOM: STUDY DESCRIPTION: CT Abd and Pelv W Cont Attending Physician: Yesenia Vasquez M.D. Referring Physician: Donald Vela M.D. Ordering Physician: Leo Michaud M.D. Primary Care Physician: Jude Murray M.D. MEDICAL IMAGING REPORT This report is preliminary unless electronic signature is present EXAM CT abdomen and pelvis with contrast. INDICATIONS Abdominal pain, blood in stool, cramping and dizziness for 3 days. History also of lymphoma. COMPARISON There is no comparison. Actually, there is a comparison PET/CT scan 10/06/2016. TECHNIQUE Axial 5 mm images were obtained of the abdomen and pelvis with IV contrast and oral contrast. This CT exam was performed with one or more of the following radiation dose reduction techniques: automatic exposure control, adjustment of mA and/or kV according to patient size, and iterative reconstruction. FINDINGS In the right base, there is a rounded mass abutting the pleura measuring 18 mm in diameter. There is a larger area of density in the right base. It is difficult to tell if this represents atelectasis or a mass. It is about 4.5 cm in diameter. Neither of these were present on 10/06/2016, so they may represent inflammatory or infectious or atelectasis findings. The gallbladder has been removed. The liver, spleen, pancreas, adrenal glands and kidneys are normal. The aorta is normal in size. There is no adenopathy. The appendix appears normal. The bowel is normal. The right ovary contains a cyst measuring 5 cm in diameter. Uterus and left ovary normal. The bladder is normal. The bones are unremarkable. IMPRESSION 1. There are two separate areas of adjacent density in the right base that have developed since 10/06/2016. One is 1.8 cm in size and the other STS. [facility] A Service of [facility] & [facility] RADIOLOGY TEXT RESULTS PATIENT: JOSE ANGEL GREGORIO LOCATION: [facility] : [birth year] UNIT #: [id number] AGE: [address]: Yesenia Vasquez MD SEX: F ORDER DR: is about 5 cm in size, and since they have developed within what appear to be lung on 10/06/2016, they are likely due to atelectasis. Short-term follow up is recommended. 2. There is no evidence of lymphoma or abnormal adenopathy in the abdomen or pelvis. 3. 5 cm right ovarian cyst. Dictated by... Mack Ayon M.D. THIS IS AN ELECTRONICALLY VERIFIED REPORT Mack Ayon M.D. at 01/24/2017 5:42 AM DYAN/ratna TD: 01/21/2017 15:28 JOB #: [id number] MEDICAL IMAGING REPORT Page 1 of 1 COPY
[~2017-01-21 00:46] MED LIST changes: +ALLOPURINOL300 MG PO; +BACTRIM DS TAB1 EACH PO; +DEXAMETHASONE4 MG PO; +EMLA TOP; +HYDROCODON-ACE1 EAC5 PO; +PHENERGAN25 M1 PO; +PHENERGAN25 MG PO; +XARELTO15 MG PO; +ZOFRAN ODT4 M1 PO
[2017-01-21 01:45] LABS: BASOPHIL# 0.2 X10e3 (0-0.3); EOSINOPHIL# 0.1 X10e3 (0-0.7); EOSINOPHIL% 0.4 % (0.0-7.0); HEMATOCRIT 35.7 % (35.0-45.0); HEMOGLOBIN 11.6 gm/dL (12.0-16.0); LYMPHOCYTE# 4.2 X10e3 (1.0-3.5); LYMPHOCYTE% 28.6 % (17.0-45.0); MEAN CELL VOLUME 78.7 FL (83-96); MEAN CORPUSCULAR HEMOGLOBIN 25.6 PG (28-34); MEAN CORPUSCULAR HGB CONC 32.5 g/dL (30-36); MEAN PLATELET VOLUME 7.4 FL (6.5-11.5); MONOCYTE# 0.2 X10e3 (0-1.0); PLATELET COUNT 296 X10e3 (140-420); RED BLOOD COUNT 4.54 X10e (3.90-5.30); RED CELL DISTRIBUTION WIDTH 15.6 % (11.0-15.5); WHITE BLOOD COUNT 14.6 X10e3 (4.0-10.5)
[2017-01-21 01:49] LABS: DIFF IND NO
[2017-01-21 02:11] LABS: URINE SOURCE CLEAN CATCH
[2017-01-21 02:12] LABS: ALBUMIN SERUM 3.3 g/dL (3.5-5.0); ALKALINE PHOSPHATASE 48 U/L (32-92); ALT (SGPT) 26 U/L (10-40); AMYLASE 17 U/L (0-46); AST (SGOT) 21 U/L (10-42); BILIRUBIN,TOTAL 0.6 mg/dL (0.2-2.0); BLOOD UREA NITROGEN 24 mg/dL (9-23); CALCIUM SERUM 8.3 mg/dL (8.4-10.2); CARBON DIOXIDE 27 mmol/L (22-31); CHLORIDE 100 mmol/L (100-111); CREATININE SERUM 0.8 mg/dL (0.6-1.4); GLOM FILT RATE Estimated 101.8 mL/min (>60); GLUCOSE FASTING 94 mg/dL (70-110); LIPASE 27 U/L (22-51); POTASSIUM 3.5 mmol/L (3.5-5.1); PROTEIN TOTAL SERUM 6.5 g/dL (6.0-8.3); SODIUM 133 mmol/L (135-145)
[2017-01-21 02:15] LABS: URINE APPEARANCE CLOUDY; URINE BILIRUBIN NEG (NEG); URINE BLOOD NEG (NEG); URINE COLOR YELLOW; URINE GLUCOSE NEG (NEG); URINE KETONE NEG (NEG); URINE LEUKOCYTE ESTERASE NEG (NEG); URINE NITRATE NEG (NEG); URINE PH 5.5 (5-8); URINE PROTEIN NEG (NEG); URINE SPECIFIC GRAVITY 1.022 (1.003-1.035); URINE UROBILINOGEN 0.2 MG/DL (NEG)
[2017-01-21 02:18] LABS: CULTURE INDICATED? NO
[2017-01-21 02:37] LABS: BILIRUBIN, DIRECT <0.1 mg/dL (0.0-0.2); BILIRUBIN,INDIRECT 0.5 mg/dL (0.0-0.9)
== END 2017-01-21 07:35 | disposition home or self-care (01) ==
LOC: CED 00:46
PROVIDERS: Emergency Medicine
DX: K62.5 Hemorrhage of anus and rectum (principal); R10.31 Right lower quadrant pain; R10.32 Left lower quadrant pain; R50.9 Fever, unspecified; Z90.49 Acquired absence of other specified parts of digestive tract; Z87.891 Personal history of nicotine dependence; Z91.040 Latex allergy status; Z88.8 Allergy status to other drugs, medicaments and biological substances; Z79.899 Other long term (current) drug therapy
CPT/HCPCS: 36415; 74177; 80048; 80076; 81003; 82150; 83690; 84703; 85025; 96360; 99284; Q9967

== ENCOUNTER 2017-02-04 08:14 | Emergency (ER) | payer OTHER, BC ==
[~2017-02-04] VITALS: Ht 165.1 cm; Wt 163.3 kg
--- NOTE | ~2017-02-04 | CR72 ---
[facility] A Service of [facility] & [facility] RADIOLOGY TEXT RESULTS PATIENT: JOSE ANGEL GREGORIO LOCATION: [facility] : [birth year] UNIT #: [id number] AGE: [address]: Vikki José APRN SEX: F ORDER DR: [id number] [facility] [address] [place], [place] [address] [id number] E MR#: [id number] Acc #: [id number] NAME: JOSE ANGEL GREGORIO : 1990 SEX: F STUDY DATE/TIME: 02/04/2017 8:39 UNIT: [facility] ROOM: STUDY DESCRIPTION: CR Chest Single View Portable Attending Physician: Vikki José A.P.R.N. Referring Physician: Donald Vela M.D. Ordering Physician: Ed Leopoldo Michaud M.D. Primary Care Physician: Rj Luke M.D. MEDICAL IMAGING REPORT This report is preliminary unless electronic signature is present EXAM Chest x-ray, single-view, portable. CLINICAL HISTORY Fever following chemotherapy. Fever today. History of lymphoma. COMMENT Single frontal portable view of the chest timed 08:39 on 02/04/2017. COMPARISON Compared to 01/01/2017. No change in the tunneled catheter right IJ approach. Cardiac silhouette size is normal. No acute-appearing parenchymal infiltrate, acute congestive failure or pneumothorax. No pleural effusion. IMPRESSION No active disease. Dictated by... Jacqueline Bianchi M.D. THIS IS AN ELECTRONICALLY VERIFIED REPORT Jacqueline Bianchi M.D. at 02/04/2017 4:17 PM JANAY/ratna TD: 02/04/2017 15:31 JOB #: [id number] MEDICAL IMAGING REPORT Page 1 of 1 COPY
[2017-02-04 08:57] LABS: URINE SOURCE CLEAN CATCH
[2017-02-04 09:06] LABS: URINE APPEARANCE CLOUDY; URINE BLOOD NEG (NEG); URINE COLOR DK YELLOW; URINE GLUCOSE NEG (NEG); URINE KETONE NEG (NEG); URINE LEUKOCYTE ESTERASE TRACE (NEG); URINE NITRATE NEG (NEG); URINE PH 8.5 (5-8); URINE PROTEIN 2+ (NEG); URINE SPECIFIC GRAVITY 1.021 (1.003-1.035)
[2017-02-04 09:09] LABS: CULTURE INDICATED? YES; URINE BACTERIA AUWI 2+ (NEGATIVE); URINE SQUAMOUS EPITHELIAL CELL MOD /[HPF]
[2017-02-04 09:13] LABS: BASOPHIL% 0.2 % (0-2.5); DIFF IND NO; EOSINOPHIL% 0.1 % (0.0-7.0); HEMATOCRIT 35.3 % (35.0-45.0); HEMOGLOBIN 11.4 gm/dL (12.0-16.0); LYMPHOCYTE# 0.3 X10e3 (1.0-3.5); LYMPHOCYTE% 4.3 % (17.0-45.0); MEAN CELL VOLUME 78.3 FL (83-96); MEAN CORPUSCULAR HEMOGLOBIN 25.4 PG (28-34); MEAN CORPUSCULAR HGB CONC 32.4 g/dL (30-36); MEAN PLATELET VOLUME 7.6 FL (6.5-11.5); MONOCYTE# 0.1 X10e3 (0-1.0); MONOCYTE% 0.7 % (3.0-12.0); NEUTROPHIL# 7.7 X10e3 (1.5-7.1); NEUTROPHIL% 94.7 % (40-75); PLATELET COUNT 214 X10e3 (140-420); RED BLOOD COUNT 4.51 X10e (3.90-5.30); RED CELL DISTRIBUTION WIDTH 16.9 % (11.0-15.5); WHITE BLOOD COUNT 8.1 X10e3 (4.0-10.5)
[2017-02-04 09:23] LABS: URINE BILIRUBIN NEG (NEG)
[2017-02-04 09:24] LABS: URINE MUCUS PRESENT
[2017-02-04 10:00] LABS: BILIRUBIN,TOTAL 1.1 mg/dL (0.2-2.0); BUN/CREATININE RATIO 13.75; CALCIUM SERUM 8.2 mg/dL (8.4-10.2); CREATININE SERUM 0.8 mg/dL (0.6-1.4); GLOM FILT RATE Estimated 101.8 mL/min (>60); POTASSIUM 3.6 mmol/L (3.5-5.1); PROTEIN TOTAL SERUM 6.4 g/dL (6.0-8.3)
== END 2017-02-04 12:20 | disposition home or self-care (01) ==
LOC: CED 08:14 → CFTX 09:23 → CED 12:20
PROVIDERS: Nurse Practitioner
DX: R50.9 Fever, unspecified (principal); Z90.49 Acquired absence of other specified parts of digestive tract; Z91.041 Radiographic dye allergy status; Z79.899 Other long term (current) drug therapy
CPT/HCPCS: 36415; 71010; 80053; 81003; 84703; 85025; 87040; 87077; 87086; 87186; 94640; 96361; 96374; 96375; 99284; J0696; J1642; J2405

== ENCOUNTER → 2017-02-11 | Outpatient (CLI) | payer OTHER, BC | END | disposition home or self-care (01) | LOC: CLAB 13:21 | DX: R50.9 Fever, unspecified (principal) | CPT/HCPCS: 87040 ==